=== PATIENT | male | born 1965 | race African-American/Black ===

== ENCOUNTER 2016-04-27 07:32 | Emergency (ER) | payer OTHER ==
[2016-04-27] MEDS ORDERED: Sodium Chloride 0.9% 1,000 ML BAG ONE (08:14)
[2016-04-27] MEDS ORDERED: Ketorolac Tromethamine 30 MG/ML VIAL ONE (08:17)
[2016-04-27] MEDS ORDERED: Ondansetron HCl/PF 4 MG/2 ML Vial ONE (08:17)
[2016-04-27 08:18] LABS: Bilirubin Negative (Negative); Blood, Urine Trace (Negative); Clarity Clear (Clear); Glucose, Urine (Dipstick) Negative (Negative); Leukocyte Negative (Negative); Nitrite Negative (Negative); Protein, Urine (Dipstick) Negative (Neg-Trace); Specific Gravity, Urine 1.015 (1.005-1.030); Urobilinogen 0.2 mg/dL (0.2-1.0); pH, Urine 5.5 (5.0-9.0)
[2016-04-27 08:19] LABS: Bacteria/HPF Rare-Few HPF (None Seen); RBC/HPF 0-3 HPF (0-3); Squamous Epithelial 0-3 HPF (0-3); WBC/HPF 0-3 HPF (0-3)
[2016-04-27 08:24] LABS: Amphetamine Not Detected (NotDetected); Barbiturates Screen Not Detected (NotDetected); Benzodiazepine Screen Not Detected (NotDetected); Cocaine Metabolite Screen Not Detected (NotDetected); Medtox Control Line Valid? VALID (VALID); Methadone Not Detected (NotDetected); Methamphetamine Not Detected (NotDetected); Opiate Screen Not Detected (NotDetected); Oxycodone Screen Not Detected (NotDetected); Phencyclidine (PCP) Not Detected (NotDetected); THC/Cannabinoid Screen Not Detected (NotDetected); Tricyclic Screen Not Detected (NotDetected)
[2016-04-27 08:25] LABS: #Basophils 0.1 thou/uL (0.0-0.2); #Lymphocytes 0.9 thou/uL (1.20-3.40); #Monocytes 0.4 thou/uL (0.11-0.59); #Neutrophils 7.4 thou/uL (1.40-6.50); %Eosinophils 0.3 % (0.0-10.0); %Lymphocytes 9.9 % (21.0-51.0); %Monocytes 4.5 % (0.0-10.0); %Neutrophils 84.3 % (42.0-75.0); Hemoglobin 14.9 g/dL (14.0-18.0); Mean Corpuscular HGB CONC 32.5 g/dL (32.0-36.0); Mean Corpuscular Hemoglobin 28.1 pg (27.0-31.0); Mean Corpuscular Volume 86.4 fl (80.0-94.0); Mean Platelet Volume 7.3 fL (7.4-10.4); Platelet Count 298 thou/uL (130-400); RBC Distribution Width 12.9 % (11.5-14.5); Red Blood Cell (RBC) Count 5.31 mill/uL (4.70-6.10); White Blood Cell (WBC) Count 8.8 thou/uL (4.8-10.8)
[2016-04-27 08:37] LABS: ALT (SGPT) 40 U/L (0-55); AST (SGOT) 72 U/L (5-34); Albumin 4.4 g/dL (3.5-5.0); Alkaline Phosphatase 62 U/L (40-150); Anion Gap 21 mmol/L (10-20); BUN (Urea Nitrogen) 16 mg/dL (8.9-20.6); Bilirubin, Total 1.3 mg/dL (0.2-1.2); Calc. Creatinine Clearance 0 mL/min (70-130); Calcium 9.4 mg/dL (7.8-10.44); Carbon Dioxide 20 mmol/L (22-29); Chloride 99 mmol/L (98-107); Estimated GFR-MDRD 76; Globulin 3.4 g/dL (2.4-3.5); Glucose 122 mg/dL (70-105); Protein, Total 7.8 g/dL (6.0-8.3); Sodium 136 mmol/L (136-145)
[2016-04-27 08:38] LABS: Acetaminophen Less than 3.0 mcg/mL (10.0-30.0); Alcohol 67 mg/dL (Less than 10); Salicylate Less than 5.0 mg/dL (15.0-30.0)
== END 2016-04-27 09:30 | disposition home or self-care (01) ==
LOC: MADERS 07:32
DX: F10.10 Alcohol abuse, uncomplicated (principal)
CPT/HCPCS: 80053; 80306; 80307; 81003; 81015; 84443; 85025; 87086; 96361; 96374; 96375; J1885; J2405; J7050

== ENCOUNTER 2017-01-09 04:28 | Emergency (ER) | payer OTHER, SELFPAY ==
[2017-01-09] MEDS ORDERED: Naproxen 500 MG TAB ONE (04:55)
[2017-01-09] MEDS ORDERED: AMOXicillin 250 MG CAP ONE (04:55)
[2017-01-09] MEDS ORDERED: Benzonatate 100 MG CAP ONE (04:55)
[2017-01-09] MEDS ORDERED: predniSONE 20 MG TAB ONE ×2 (05:13→05:14)
--- NOTE | 2017-01-09 08:43 | RAD ---
THREE VIEWS OF THE LEFT HAND: COMPARISON: None. HISTORY: Left hand pain and swelling. FINDINGS: Three views of the left hand show no evidence of acute fracture or dislocation. Moderate dorsal sof t tissue swelling is seen. No degenerative changes are seen. IMPRESSION: No evidence of acute osseous abnormality. POS: [facility]
--- NOTE | 2017-01-09 08:45 | RAD ---
THREE VIEWS OF THE RIGHT HAND: COMPARISON: None. HISTORY: Right hand pain and swelling. FINDINGS: Three views of the right hand show no evidence of acute fracture or dislocation. Mild dorsal soft t issue swelling is seen. No degenerative changes are seen. IMPRESSION: No evidence of acute osseous abnormality. POS: [facility]
== END 2017-01-09 06:02 | disposition home or self-care (01) ==
LOC: MADERS 04:28
DX: M25.442 Effusion, left hand (principal); M25.441 Effusion, right hand; J20.9 Acute bronchitis, unspecified
CPT/HCPCS: J7506

== ENCOUNTER 2017-04-29 18:45 | Emergency (ER) | payer SELFPAY ==
--- NOTE | 2017-04-29 20:11 | RAD ---
CHEST TWO VIEWS 04/29/17 HISTORY: Chest pain. COMPARISON: 06/18/14. FINDINGS: The cardiac silhouette and pulmonary vasculature are unremarkable. mediastinum is midline. There is n o confluent air space consolidation, pneumothorax or pleural fluid apparent. Lungs are hyperinflated. IMPRESSION: COPD. POS: [facility]
[2017-04-29] MEDS ORDERED: Gabapentin 100 MG CAP ONE (20:33)
[2017-04-29] MEDS ORDERED: Dexamethasone 4 MG TAB ONE (20:33)
[2017-04-29] MEDS ORDERED: Ibuprofen 800 MG TAB ONE (20:33)
== END 2017-04-29 20:41 | disposition home or self-care (01) ==
LOC: MADERS 18:45
DX: S29.011A Strain of muscle and tendon of front wall of thorax, initial encounter (principal); G62.9 Polyneuropathy, unspecified
CPT/HCPCS: 71046; 93005; J8540

== ENCOUNTER 2017-12-01 17:05 | Emergency (ER) | payer OTHER, SELFPAY ==
[2017-12-01 17:58] LABS: #Basophils 0.1 thou/uL (0.0-0.2); #Eosinphils 0.3 thou/uL (0.0-0.7); #Lymphocytes 2.1 thou/uL (1.20-3.40); #Monocytes 0.6 thou/uL (0.11-0.59); #Neutrophils 4.1 thou/uL (1.40-6.50); %Basophils 1.3 % (0.0-1.0); %Eosinophils 4.6 % (0.0-10.0); %Monocytes 7.9 % (0.0-10.0); %Neutrophils 57.2 % (42.0-75.0); Hemoglobin 14.8 g/dL (14.0-18.0); Mean Corpuscular HGB CONC 32.3 g/dL (32.0-36.0); Mean Corpuscular Hemoglobin 28.5 pg (27.0-31.0); Mean Corpuscular Volume 88.1 fL (78.0-98.0); Mean Platelet Volume 6.8 fL (7.4-10.4); Platelet Count 264 thou/uL (130-400); RBC Distribution Width 12.4 % (11.5-14.5); White Blood Cell (WBC) Count 7.1 thou/uL (4.8-10.8)
[2017-12-01] MEDS ORDERED: Pseudoephedrine HCl 30 MG TAB ONE (17:58)
[2017-12-01] MEDS ORDERED: predniSONE 20 MG TAB ONE (17:58)
[2017-12-01 18:11] LABS: Anion Gap 13 mmol/L (10-20); BUN (Urea Nitrogen) 13 mg/dL (8.4-25.7); Calc. Creatinine Clearance 0 mL/min (70-130); Calcium 9.4 mg/dL (7.8-10.44); Carbon Dioxide 26 mmol/L (22-29); Chloride 105 mmol/L (98-107); Estimated GFR-MDRD 77; Glucose 95 mg/dL (70-105); Sodium 140 mmol/L (136-145)
== END 2017-12-01 18:08 | disposition home or self-care (01) ==
LOC: MADERS 17:05
DX: K64.9 Unspecified hemorrhoids (principal); J01.90 Acute sinusitis, unspecified
CPT/HCPCS: 36415; 80048; 85025; 99283; J7506

== ENCOUNTER 2017-12-21 19:41 | Emergency (ER) | payer OTHER | END 2017-12-21 21:35 | disposition home or self-care (01) | LOC: MADERS 19:41 | DX: R19.7 Diarrhea, unspecified (principal) | CPT/HCPCS: 99283 ==

== ENCOUNTER 2017-12-29 10:47 | Outpatient (CLI) | payer OTHER ==
[2017-12-29 11:14] LABS: #Basophils 0.1 thou/uL (0.0-0.2); #Eosinphils 0.2 thou/uL (0.0-0.7); #Lymphocytes 1.4 thou/uL (1.20-3.40); #Monocytes 0.5 thou/uL (0.11-0.59); #Neutrophils 4.5 thou/uL (1.40-6.50); %Basophils 1.3 % (0.0-1.0); %Eosinophils 2.6 % (0.0-10.0); %Lymphocytes 20.9 % (21.0-51.0); %Monocytes 7.6 % (0.0-10.0); %Neutrophils 67.7 % (42.0-75.0); Hemoglobin 14.4 g/dL (14.0-18.0); Mean Corpuscular HGB CONC 31.4 g/dL (32.0-36.0); Mean Corpuscular Hemoglobin 27.6 pg (27.0-31.0); Mean Platelet Volume 7.3 fL (7.4-10.4); Platelet Count 248 thou/uL (130-400); Red Blood Cell (RBC) Count 5.22 mill/uL (4.70-6.10); White Blood Cell (WBC) Count 6.6 thou/uL (4.8-10.8)
[2017-12-29 11:31] LABS: ALT (SGPT) 28 U/L (8-55); AST (SGOT) 37 U/L (5-34); Albumin 4.2 g/dL (3.5-5.0); Alkaline Phosphatase 55 U/L (40-150); Anion Gap 12 mmol/L (10-20); BUN (Urea Nitrogen) 12 mg/dL (8.4-25.7); Bilirubin, Total 0.8 mg/dL (0.2-1.2); Calc. Creatinine Clearance 0 mL/min (70-130); Calcium 9.5 mg/dL (7.8-10.44); Carbon Dioxide 28 mmol/L (22-29); Cardiac Risk 4.7 (Less than 4.5); Chloride 103 mmol/L (98-107); Cholesterol 288 mg/dl (< 200 Desired); Estimated GFR-MDRD 79; Globulin 3.6 g/dL (2.4-3.5); Glucose 92 mg/dL (70-105); HDL Cholesterol 61 mg/dL (>60 Neg Risk); LDL Cholesterol, Calculated 193 mg/dL; Potassium 4.3 mmol/L (3.5-5.1); Protein, Total 7.8 g/dL (6.0-8.3); Sodium 139 mmol/L (136-145); Triglycerides 172 mg/dL (Less than 150)
== END 2017-12-29 10:48 | disposition home or self-care (01) ==
LOC: MADLABBHPM 10:47
PROVIDERS: ATTEND Family Medicine
DX: R07.9 Chest pain, unspecified (principal); R06.02 Shortness of breath; R19.7 Diarrhea, unspecified
CPT/HCPCS: 36415; 80053; 80061; 84443; 85025; 87045; 87046; 87177; 87324; 87449; 87899; 93005; 93010

== ENCOUNTER 2018-07-14 10:32 | Outpatient (CLI) | payer OTHER ==
--- NOTE | 2018-07-14 10:50 | RAD ---
EXAM: 2 views of the right hip HISTORY: right hip pain COMPARISON: None FINDINGS: 2 views of the right hip shows no evidence of acute fracture or dislocation. Mild right hip degenerative changes are seen. No soft tissue swelling is present. IMPRESSION: Mild degenerative changes without evidence of acute osseous abnormality.
--- NOTE | 2018-07-14 11:00 | RAD ---
EXAM: 2 views of the left hip HISTORY: left hip pain COMPARISON: None FINDINGS: 2 views of the left hip shows no evidence of acute fracture or dislocation. Mild left hip d egenerative changes are seen. No soft tissue swelling is present. IMPRESSION: Mild left hip osteoarthritis
--- NOTE | 2018-07-14 11:02 | RAD ---
Exam: 3 views of the lumbosacral spine HISTORY: Low back pain with bilateral sciatica COMPARISON: None FINDINGS: 3 views of the lumbosacral spine shows normal height and alignment of the vertebral bodies and intervertebral discs without fracture or subluxation. No significant degenerative changes are seen. The sacroiliac joints are unremarkable. IMPRESSION: No significant lumbar spine abnormality.
== END 2018-07-14 10:33 | disposition home or self-care (01) ==
LOC: MADRAD 10:32
PROVIDERS: ATTEND Family Medicine
DX: M25.551 Pain in right hip (principal); M25.552 Pain in left hip; M54.42 Lumbago with sciatica, left side; M54.41 Lumbago with sciatica, right side; M16.0 Bilateral primary osteoarthritis of hip
CPT/HCPCS: 72100

== ENCOUNTER 2019-10-14 08:05 | Emergency (ER) | payer OTHER ==
[2019-10-15 12:27] LABS: SARS-CoV-2 MS2 Positive; SARS-CoV-2 N Gene Negative; SARS-CoV-2 S Gene Negative; SARS-CoV-2 by NAA Not Detected (NotDetected); SARS-CoV-2 orf1ab Negative
== END 2019-10-14 09:35 | disposition home or self-care (01) ==
LOC: MADERS 08:05
DX: F10.129 Alcohol abuse with intoxication, unspecified (principal); R53.1 Weakness; R53.83 Other fatigue; Z20.828 Contact with and (suspected) exposure to other viral communicable diseases
CPT/HCPCS: 87635; 99284; U0003

== ENCOUNTER 2020-03-04 08:28 | Emergency (ER) | payer OTHER ==
--- NOTE | 2020-03-04 11:43 | RAD ---
RIGHT TOE 3 VIEWS: HISTORY: Injury. COMPARISON: None. FINDINGS: Intraarticular fracture in a transverse oblique orientation through the distal phalanx base extending through the interphalangeal joint great toe. IMPRESSION: Minimally displaced intraarticular fracture distal phalanx base great toe. POS: [facility]
== END 2020-03-04 10:14 | disposition home or self-care (01) ==
LOC: MADERS 08:28
DX: S92.424A Nondisplaced fracture of distal phalanx of right great toe, initial encounter for closed fracture (principal); X58.XXXA Exposure to other specified factors, initial encounter

== ENCOUNTER 2020-09-24 15:22 | Emergency (ER) | payer OTHER ==
[2020-09-24] MEDS ORDERED: Albuterol 200 PUFF (6.7GM INHALER) ONE (16:55)
[2020-09-25 11:29] LABS: SARS-CoV-2 PCR by NAA Not Detected (NotDetected)
== END 2020-09-24 18:02 | disposition home or self-care (01) ==
LOC: MADERS 15:22
DX: J06.9 Acute upper respiratory infection, unspecified (principal); Z20.822 Contact with and (suspected) exposure to COVID-19
CPT/HCPCS: 71045; 87804; U0003; U0005

== ENCOUNTER 2020-10-03 23:09 | Emergency (ER) | payer OTHER ==
[2020-10-04] MEDS ORDERED: predniSONE 20 MG TAB ONE (00:31)
[2020-10-04] MEDS ORDERED: Doxycycline 100 MG CAP ONE (00:31)
== END 2020-10-04 00:36 | disposition home or self-care (01) ==
LOC: MADERS 23:09
DX: J45.909 Unspecified asthma, uncomplicated (principal); Z79.899 Other long term (current) drug therapy
CPT/HCPCS: 71046; J7512

== ENCOUNTER 2020-10-07 20:16 | Emergency (ER) | payer OTHER | END 2020-10-07 21:28 | disposition home or self-care (01) | LOC: MADERS 20:16 | DX: J06.9 Acute upper respiratory infection, unspecified (principal); J20.8 Acute bronchitis due to other specified organisms; Z79.899 Other long term (current) drug therapy | CPT/HCPCS: 99283 ==

== ENCOUNTER 2020-11-07 09:35 | Outpatient (CLI) | payer OTHER | END 2020-11-07 09:36 | disposition home or self-care (01) | LOC: MADRAD 09:35 | PROVIDERS: ATTEND Family Medicine | DX: J20.9 Acute bronchitis, unspecified (principal); R06.2 Wheezing | CPT/HCPCS: 71046 ==

== ENCOUNTER 2020-11-24 07:06 | Emergency (ER) | payer OTHER ==
[2020-11-24] MEDS ORDERED: Tetracaine 0.5% PF 4 ML BOT ONE (08:02)
[2020-11-24] MEDS ORDERED: Boostrix 0.5 ML (Tdap) VIAL ONE (08:23)
== END 2020-11-24 08:40 | disposition home or self-care (01) ==
LOC: MADERS 07:06
DX: H11.422 Conjunctival edema, left eye (principal)
CPT/HCPCS: 90471; 90715

== ENCOUNTER 2020-12-05 00:14 | Emergency (ER) | payer OTHER ==
[2020-12-05] MEDS ORDERED: Ipratropium Bromide 2.5 ml Neb ONE ×3 (00:47→01:05)
[2020-12-05] MEDS ORDERED: predniSONE 20 MG TAB ONE (00:47)
[2020-12-05] MEDS ORDERED: Albuterol Sulfate 2.5 mg/0.5 ml Neb ONE ×3 (00:47→01:05)
== END 2020-12-05 02:09 | disposition home or self-care (01) ==
LOC: MADERS 00:14
DX: J20.9 Acute bronchitis, unspecified (principal); R00.0 Tachycardia, unspecified
CPT/HCPCS: 71045; J7512; J7611

== ENCOUNTER 2021-03-16 21:15 | Emergency (ER) | payer OTHER ==
[2021-03-16] MEDS ORDERED: Albuterol Sulfate 2.5 mg/0.5 ml Neb ONE (23:05)
[2021-03-16] MEDS ORDERED: Ipratropium Bromide 2.5 ml Neb ONE (23:05)
[2021-03-16] MEDS ORDERED: predniSONE 10 MG TAB ONE (23:36)
[2021-03-16] MEDS ORDERED: predniSONE 20 MG TAB ONE (23:36)
[2021-03-17] MEDS ORDERED: Ipratropium Bromide 2.5 ml Neb ONE (00:29)
[2021-03-17] MEDS ORDERED: Albuterol Sulfate 2.5 mg/0.5 ml Neb ONE (00:29)
== END 2021-03-17 01:34 | disposition home or self-care (01) ==
LOC: MADERS 21:15
DX: J44.1 Chronic obstructive pulmonary disease with (acute) exacerbation (principal); R00.0 Tachycardia, unspecified
CPT/HCPCS: 71045; 93005; J7512; J7611; J7620

== ENCOUNTER 2021-05-02 22:24 | Emergency (ER) | payer OTHER ==
[~2021-05-02 22:24] MED LIST: Albuterol Sulfate 2.5 mg/3 ml Neb ONE; Ipratropium Bromide 2.5 ml Neb ONE
[2021-05-02] MEDS ORDERED: Albuterol Sulfate 2.5 mg/3 ml Neb ONE ×2 (22:39→22:42)
[2021-05-02] MEDS ORDERED: predniSONE 20 MG TAB ONE (23:26)
[2021-05-03] MEDS ORDERED: Albuterol Sulfate 2.5 mg/3 ml Neb ONE ×2 (00:13→04:15)
[2021-05-03 02:00] LABS: #Basophils 0.1 thou/uL (0.0-0.2); #Eosinphils 0.4 thou/uL (0.0-0.7); #Lymphocytes 0.8 thou/uL (1.20-3.40); #Monocytes 0.5 thou/uL (0.11-0.59); #Neutrophils 8.9 thou/uL (1.40-6.50); %Basophils 0.8 % (0.0-1.0); %Eosinophils 3.5 % (0.0-10.0); %Lymphocytes 7.4 % (21.0-51.0); %Monocytes 4.6 % (0.0-10.0); %Neutrophils 83.8 % (42.0-75.0); Hemoglobin 13.9 g/dL (14.0-18.0); Mean Corpuscular HGB CONC 31.5 g/dL (32.0-36.0); Mean Corpuscular Hemoglobin 27.6 pg (27.0-31.0); Mean Corpuscular Volume 87.7 fL (78.0-98.0); Mean Platelet Volume 6.6 fL (7.4-10.4); Platelet Count 258 thou/uL (130-400); RBC Distribution Width 12.4 % (11.5-14.5); Red Blood Cell (RBC) Count 5.04 mill/uL (4.70-6.10); White Blood Cell (WBC) Count 10.6 thou/uL (4.8-10.8)
[2021-05-03 02:20] LABS: ALT (SGPT) 39 U/L (8-55); AST (SGOT) 52 U/L (5-34); Albumin 4.4 g/dL (3.5-5.0); Alkaline Phosphatase 52 U/L (40-110); Anion Gap 18 mmol/L (10-20); BUN (Urea Nitrogen) 15 mg/dL (8.4-25.7); Bilirubin, Total 1.4 mg/dL (0.2-1.2); Calc. Creatinine Clearance 0 mL/min (70-130); Calcium 9.7 mg/dL (7.8-10.44); Carbon Dioxide 20 mmol/L (22-29); Chloride 103 mmol/L (98-107); Globulin 3.1 g/dL (2.4-3.5); Glucose 148 mg/dL (70-105); Protein, Total 7.5 g/dL (6.0-8.3); Sodium 137 mmol/L (136-145)
[2021-05-03 06:03] LABS: Lactic Acid 5.7 mmol/L (0.5-2.2)
[2021-05-03] MEDS ORDERED: Sodium Chloride 0.9% 1,000 ML ONE ×3 (06:05→09:41)
[2021-05-03] MEDS ORDERED: Lactated Ringer's 1,000 ML ONE (06:06)
[2021-05-03] MEDS ORDERED: Sodium Chloride 0.9% 250 ML 250 ML ONE (06:31)
[2021-05-03] MEDS ORDERED: Azithromycin 500 MG VIAL ONE (06:31)
[2021-05-03] MEDS ORDERED: Sterile Water 10 ML ONE (06:32)
[2021-05-03] MEDS ORDERED: cefTRIAXone\\ROCEPHIN 2 GM VIAL ONE (06:32)
[2021-05-03 06:35] LABS: Magnesium 1.9 mg/dL (1.6-2.6)
[2021-05-03] MEDS ORDERED: Sodium Chloride 0.9% 500 ML ONE (08:21)
[2021-05-03 08:31] LABS: Acetaminophen Less than 6.0 mcg/mL (10.0-30.0); Alcohol Less than 10 mg/dL (Less than 10); Salicylate Less than 8.0 mg/dL (15.0-30.0)
[2021-05-03 08:54] LABS: Amphetamine Not Detected (NotDetected); Barbiturates Screen Not Detected (NotDetected); Benzodiazepine Screen Not Detected (NotDetected); Cocaine Metabolite Screen Not Detected (NotDetected); Medtox Control Line Valid? VALID (VALID); Methadone Not Detected (NotDetected); Methamphetamine Not Detected (NotDetected); Opiate Screen Not Detected (NotDetected); Oxycodone Screen Not Detected (NotDetected); Phencyclidine (PCP) Not Detected (NotDetected); THC/Cannabinoid Screen Not Detected (NotDetected); Tricyclic Screen Not Detected (NotDetected)
[2021-05-03] MEDS ORDERED: Lorazepam 2 MG/ML VIAL ONE (09:26)
== END 2021-05-03 11:57 | disposition home or self-care (01) ==
LOC: MADERS 22:24
DX: J45.909 Unspecified asthma, uncomplicated (principal); R00.0 Tachycardia, unspecified
CPT/HCPCS: 71045; 80053; 80306; 80307; 83605; 83735; 83880; 84443; 84484; 85025; 87040; 93005; 94760; 96365; 96367; 96375; J0456; J0696; J2060; J7030; J7050; J7120; J7512; J7611; J7620

== ENCOUNTER 2021-07-08 14:38 | Outpatient (CLI) | payer OTHER ==
[2021-07-08 17:57] LABS: ALT (SGPT) 42 U/L (8-55); AST (SGOT) 56 U/L (5-34); Albumin 4.4 g/dL (3.5-5.0); Alkaline Phosphatase 54 U/L (40-110); Anion Gap 17 mmol/L (10-20); BUN (Urea Nitrogen) 14 mg/dL (8.4-25.7); Bilirubin, Total 0.6 mg/dL (0.2-1.2); Calc. Creatinine Clearance 0 mL/min (70-130); Calcium 9.6 mg/dL (7.8-10.44); Carbon Dioxide 24 mmol/L (22-29); Chloride 103 mmol/L (98-107); Glucose 83 mg/dL (70-105); Potassium 4.4 mmol/L (3.5-5.1); Protein, Total 7.4 g/dL (6.0-8.3); Sodium 140 mmol/L (136-145)
[2021-07-08 18:44] LABS: #Basophils 0.1 thou/uL (0.0-0.2); #Eosinphils 0.3 thou/uL (0.0-0.7); #Lymphocytes 1.6 thou/uL (1.20-3.40); #Monocytes 0.6 thou/uL (0.11-0.59); #Neutrophils 4.2 thou/uL (1.40-6.50); %Eosinophils 4.4 % (0.0-10.0); %Monocytes 8.6 % (0.0-10.0); Hemoglobin 14.5 g/dL (14.0-18.0); Mean Corpuscular HGB CONC 29.8 g/dL (32.0-36.0); Mean Corpuscular Hemoglobin 26.7 pg (27.0-31.0); Mean Corpuscular Volume 89.4 fL (78.0-98.0); Mean Platelet Volume 8.2 fL (7.4-10.4); Platelet Count 254 thou/uL (130-400); RBC Distribution Width 12.2 % (11.5-14.5); Red Blood Cell (RBC) Count 5.45 mill/uL (4.70-6.10); White Blood Cell (WBC) Count 6.7 thou/uL (4.8-10.8)
[2021-07-08 18:45] LABS: Platelet Morphology Comment Appears Adequate; RBC Morphology Normal
[2021-07-08 18:47] LABS: MDiff Complete? YES
== END 2021-07-08 14:39 | disposition home or self-care (01) ==
LOC: MADRAD 14:38
PROVIDERS: ATTEND Family Medicine
DX: J44.1 Chronic obstructive pulmonary disease with (acute) exacerbation (principal); R06.00 Dyspnea, unspecified
CPT/HCPCS: 71046; 80053; 83880; 85025; 85379

== ENCOUNTER 2021-07-28 09:59 | Outpatient (CLI) | payer OTHER ==
[~2021-07-28 09:59] MED LIST changes: -Albuterol Sulfate 2.5 mg/3 ml Neb ONE; +Iopamidol 370 76% 125 ML VIAL FS ONE; -Ipratropium Bromide 2.5 ml Neb ONE
[2021-07-28] MEDS ORDERED: Sodium Chloride 0.9% 100 ML BAG IVPB ONE (10:00)
== END 2021-07-28 10:00 | disposition home or self-care (01) ==
LOC: MADCT 09:59
PROVIDERS: ATTEND Family Medicine
DX: R06.00 Dyspnea, unspecified (principal); R79.1 Abnormal coagulation profile; J98.4 Other disorders of lung; N62 Hypertrophy of breast
CPT/HCPCS: 71275; Q9967

== ENCOUNTER 2023-04-04 13:59 | Emergency (ER) | payer OTHER ==
[2023-04-04] MEDS ORDERED: Ipratropium/Albuterol 3 ML NEB ONE (14:17)
[2023-04-04] MEDS ORDERED: methylPREDNISolone Acetate 80 mg (1 mL) VIAL ONE (14:42)
== END 2023-04-04 15:20 | disposition home or self-care (01) ==
LOC: MADERS 13:59
DX: J44.1 Chronic obstructive pulmonary disease with (acute) exacerbation (principal); I10 Essential (primary) hypertension; K03.81 Cracked tooth; K02.9 Dental caries, unspecified; Z79.899 Other long term (current) drug therapy
CPT/HCPCS: 87070; 87205; 87635; 87804; 94640; 96372; J1040; J7620

== ENCOUNTER 2023-05-07 16:58 | Emergency (ER) | payer OTHER | END 2023-05-07 18:20 | disposition home or self-care (01) | LOC: MADERS 16:58 | DX: E86.0 Dehydration (principal); K02.9 Dental caries, unspecified; M16.9 Osteoarthritis of hip, unspecified; J44.9 Chronic obstructive pulmonary disease, unspecified; Z79.899 Other long term (current) drug therapy | CPT/HCPCS: 93005 ==